=== PATIENT | female | born 1985 | race Caucasian/White ===

== ENCOUNTER 2025-07-28 11:19 | Emergency (ER) | payer MEDICAID ==
[~2025-07-28] VITALS: Ht 160 cm; Wt 77.1 kg
[~2025-07-28 11:19] MED LIST: CYCL5TAB4 PO; IBUP600T51 PO; LIDO30AD10 TP
[2025-07-28 11:31] VITALS: BP 129/82
[2025-07-28 12:37] VITALS: BP 129/82; TEMP 98.4; O2SAT 99
== END 2025-07-28 12:38 | disposition home or self-care (01) ==
LOC: ER 11:19
DX: S62.657A Nondisplaced fracture of middle phalanx of left little finger, initial encounter for closed fracture (principal); W23.0XXA Caught, crushed, jammed, or pinched between moving objects, initial encounter; Y93.89 Activity, other specified; Y92.89 Other specified places as the place of occurrence of the external cause; Y99.9 Unspecified external cause status
CPT/HCPCS: 73140; A4606; A4663